=== PATIENT | female | born 1945 | race Caucasian/White ===

== ENCOUNTER 2016-04-17 10:03 | Emergency (ER) | payer MEDICARE, BC ==
[~2016-04-17] VITALS: Ht 160 cm; Wt 55.0 kg
[~2016-04-17 10:03] MED LIST: ALBU1AER INH; AYRGEL; CALCTAB32 PO; CETI5TAB2 PO; FIBEPOW PO; FLOVENT110 MCG/A INH; MELA3CAP2 PO; RALO1TAB13 PO; RHINSUS; SIMV20TA PO; URSO300C3 PO; ZITH250T PO
[2016-04-17 10:06] VITALS: BP 144/68; PULSE 76; RESP 16; TEMP 97.6; O2SAT 96
[2016-04-17 10:35] VITALS: BP 135/61; PULSE 71; RESP 18; O2SAT 100
[2016-04-17] MEDS ORDERED: URSO300C2 PO (10:40)
[2016-04-17] MEDS ORDERED: OMEP20CA2 PO (10:40)
[2016-04-17] MEDS ORDERED: FAMO1TAB37 PO (10:40)
[2016-04-17] MEDS ORDERED: MIRA33504 PO (10:40)
--- NOTE | 2016-04-17 10:41 | PD ---
HPI Chief Complaint: Skin Problem Time Seen by Provider: 10:30 Travel History International Travel<30 days: No Contact w/Intl Traveler<30days: No Traveled to known affect area: No History of Present Illness HPI Patient is a 70-year-old female who presents to ER with complaints of swelling to her neck. Patient reports that she noticed the swelling on and reports that it "just feels like it's getting bigger." Patient denies pain the her neck. patient denies fever/chills. Denies chest pain/sob. Patient with no other complaints. Denies injury/trauma to head/neck. PFSH Past Medical History ?: Not Past Surgical History Hysterectomy: Yes Other Surgery: Yes Social History Alcohol Use: No Tobacco Use: No Substance Use: No Allergies-Medications (Allergen,Severity, Reaction): Coded Allergies: Avelox (Verified Allergy, Severe, SWELLING, 04/13/12) Levaquin (Verified Allergy, Severe, ANAPHALAXIS, 04/13/12) Amoxicillin (Verified Allergy, Intermediate, RASH, 04/13/12) Augmentin (Verified Allergy, Intermediate, RASH, 04/13/12) Keflex (Verified Allergy, Intermediate, RASH, 04/13/12) Macrobid (Verified Allergy, Intermediate, RASH, 04/13/12) Sulfa (Verified Allergy, Intermediate, RASH, 04/13/12) Advair (Verified Allergy, Unknown, UNKNOWN REACTION, 04/13/12) Claritin (Verified Allergy, Unknown, UNKNOWN REACTION, 04/13/12) Percocet (Verified Allergy, Unknown, UNKNOWN REACTION, 04/13/12) Singulair (Verified Allergy, Unknown, UNKNOWN REACTION, 04/13/12) Advil (Verified Adverse Reaction, Severe, DIFFICULTY BREATHING, 04/13/12) Reported Meds & Prescriptions Reported Meds & Active Scripts Active Reported Rhinocort Aqua Nasal [place] (Budesonide Nasal [place]) 32 Mcg/Act Susp 2 [place] EACH NARE DAILY 120 sprays/bottle. Proair Hfa 8.5 GM Inh (Albuterol Sulfate) 90 Mcg/Act Aer 2 Puff INH Q4-6H PRN 108 mcg/actuation Calcium Citrate +D (Calcium Citrate-Vitamin D) 315-250 Mg-Unit Tab 1 Tab PO TID Zyrtec Allergy (Cetirizine HCl) 10 Mg Tab 10 Mg PO DAILY Flovent Hfa 12 GM Inh (Fluticasone Propionate) 110 Mcg/Act Inh 2 Puff INH BID Melatonin Cr (Melatonin) 3 Mg Tab 6 Mg PO HS Evista (Raloxifene HCl) 60 Mg Tab 60 Mg PO AC DINNER Simvastatin 20 Mg Tab 20 Mg PO HS Ursodiol 300 Mg Cap 300 Mg PO 3 TIMES A DAY W/MEAL Omeprazole 20 Mg Cap 20 Mg PO DAILY Pepcid (Famotidine) 20 Mg Tab 20 Mg PO HS Miralax Powder (Polyethylene Glycol 3350 Powder) 17 Gm Powd 17 Gm PO DAILY PRN Mix and dissolve one measuring cap-ful (17 grams) in water or juice. Review of Systems General / Constitutional: No: Fever Eyes: No: Visual changes HENT: No: Headaches Cardiovascular: No: Chest Pain or Discomfort Respiratory: No: Shortness of Breath Gastrointestinal: No: Abdominal Pain Genitourinary: No: Dysuria Musculoskeletal: No: Pain Skin: No Rash Neurologic: No: Weakness Psychiatric: No: Depression Endocrine: No: Polydipsia Hematologic/Lymphatic: No: Easy Bruising Physical Exam Narrative GENERAL: No acute distress, nontoxic SKIN: Warm and dry. HEAD: Atraumatic. Normocephalic. EYES: Pupils equal and round. No scleral icterus. No injection or drainage. ENT: No nasal bleeding or discharge. Mucous membranes pink and moist. NECK: Trachea midline. No JVD. Patient with mild circumfrential swelling above bilateral clavicles - no cellulitis or signs of infection, no obvious abscess CARDIOVASCULAR: Regular rate and rhythm. No murmur appreciated. RESPIRATORY: No accessory muscle use. Clear to auscultation. Breath sounds equal bilaterally. GASTROINTESTINAL: Abdomen soft, non-tender, nondistended. Hepatic and splenic margins not palpable. MUSCULOSKELETAL: No obvious deformities. No clubbing. No cyanosis. No edema. NEUROLOGICAL: Awake and alert. No obvious cranial nerve deficits. Motor grossly within normal limits. Normal speech. PSYCHIATRIC: Appropriate mood and affect; insight and judgment normal. Data Data Last Documented VS Vital Signs Date Time Temp Pulse Resp B/P Pulse Ox O2 Delivery O2 Flow Rate FiO2 04/17/16 10:35 71 18 135/61 100 Room Air 04/17/16 10:06 97.6 Orders Basic Metabolic Panel (Bmp) (04/17/16 10:31) Complete Blood Count With Diff (04/17/16 10:31) Iv Access Insert/Monitor (04/17/16 10:31) Ct Soft Tiss Neck W Iv Cont (04/17/16 ) Sodium Chlor 0.9% 1000 Ml Inj (Ns 1000 M (04/17/16 10:45) Iohexol 350 Inj (Omnipaque 350 Inj) (04/17/16 12:09) Labs Laboratory Tests Test 04/17/16 10:41 White Blood Count 6.4 TH/MM3 Red Blood Count 4.14 MIL/MM3 Hemoglobin 12.8 GM/DL Hematocrit 38.7 % Mean Corpuscular Volume 93.5 FL Mean Corpuscular Hemoglobin 30.8 PG Mean Corpuscular Hemoglobin 33.0 % Concent Red Cell Distribution Width 14.2 % Platelet Count 195 TH/MM3 Mean Platelet Volume 10.0 FL Neutrophils (%) (Auto) 52.5 % Lymphocytes (%) (Auto) 31.8 % Monocytes (%) (Auto) 10.3 % Eosinophils (%) (Auto) 4.9 % Basophils (%) (Auto) 0.5 % Neutrophils # (Auto) 3.4 TH/MM3 Lymphocytes # (Auto) 2.0 TH/MM3 Monocytes # (Auto) 0.7 TH/MM3 Eosinophils # (Auto) 0.3 TH/MM3 Basophils # (Auto) 0.0 TH/MM3 CBC Comment DIFF FINAL Differential Comment Sodium Level 142 MEQ/L Potassium Level 3.7 MEQ/L Chloride Level 106 MEQ/L Carbon Dioxide Level 29.9 MEQ/L Anion Gap 6 MEQ/L Blood Urea Nitrogen 16 MG/DL Creatinine 0.55 MG/DL Estimat Glomerular Filtration 110 ML/MIN Rate Random Glucose 72 MG/DL Calcium Level 8.7 MG/DL [facility] Medical Decision Making Medical Screen Exam Complete: Yes Emergency Medical Condition: Yes Interpretation(s) Vital Signs Date Time Temp Pulse Resp B/P Pulse Ox O2 Delivery O2 Flow Rate FiO2 04/17/16 10:06 97.6 76 16 144/68 96 Room Air Differential Diagnosis lymphoma, abscess, viral syndrome - swollen lymph nodes Narrative Course Patient is a 70-year-old female who presents to emergency room for evaluation of swelling above her clavicles bilaterally since . Patient reports that she feels balls of swelling above her clavicles and has never had this before. Patient with no complaints at this time, no fever/chills, no recent illness. Patients VSS. Patient is in no acute distress. CBC, BMP, soft tissue of neck ordered for further evaluation of patient's symptoms. cbc: wbc: 6.4 Hemoglobin 12.8 Hematocrit 38.7 Platelets 195 BMP Sodium 142 Chloride 106 Potassium 3.7 [address] of neck: unremarkable ct soft tissue of the neck ct study and report given to pt - pt will follow up with pcp and return to ER as needed pt instructed to follow up with pcp and return to ER as needed Diagnosis Primary Impression: Lymphadenopathy Patient Instructions: General Instructions Additional Instructions: Please follow-up with primary care doctor as soon as possible Return to the emergency room as needed Return to the emergency room if symptoms progress or worsen Please bring your radiology report to doctor's office for follow-up on all studies Disposition: 01 DISCHARGE HOME Condition: Stable Leonor Miller DO Apr 17, 2016 10:41
[2016-04-17] MEDS ORDERED: SODIUM CHLOR 0.9% 1000 ML INJ 1,000 ML IV ONE (10:45)
[2016-04-17] MEDS ORDERED: SIMV20TA PO (10:47)
[2016-04-17] MEDS ORDERED: EVIS60TA PO (10:47)
[2016-04-17] MEDS ORDERED: ZYRT10TA PO (10:47)
[2016-04-17] MEDS ORDERED: MELA3TAB23 PO (10:47)
[2016-04-17] MEDS ORDERED: FLUTI110I INH (10:47)
[2016-04-17] MEDS ORDERED: ALBUAER3 INH (10:47)
[2016-04-17] MEDS ORDERED: CALCTAB75 PO (10:47)
[2016-04-17] MEDS ORDERED: RHINSUS EACH NARE (10:48)
[2016-04-17 10:54] LABS: AUTOMATED NEUTROPHIL # 3.4 TH/MM3 (1.8-7.7); BASOPHIL % 0.5 % (0.0-2.0); EOSINOPHIL # 0.3 TH/MM3 (0-0.4); EOSINOPHIL % 4.9 % (0.0-4.0); HEMATOCRIT 38.7 % (35.0-46.0); HEMO FLAGS DIFF FINAL; LYMPH % 31.8 % (9.0-44.0); MEAN CELL VOLUME 93.5 FL (80.0-100.0); MEAN CORPUSCULAR HEMOGLOBIN 30.8 PG (27.0-34.0); MONO % 10.3 % (0.0-8.0); NEUT % 52.5 % (16.0-70.0); PLATELET COUNT 195 TH/MM3 (150-450); RED BLOOD COUNT 4.14 MIL/MM3 (4.00-5.30); RED CELL DISTRIBUTION WIDTH 14.2 % (11.6-17.2); WHITE BLOOD COUNT 6.4 TH/MM3 (4.0-11.0)
[2016-04-17 11:17] LABS: BICARBONATE 29.9 MEQ/L (21.0-32.0); POTASSIUM 3.7 MEQ/L (3.5-5.1)
[2016-04-17] MEDS ORDERED: IOHEXOL 350 MG/ML 10 ML VIAL (for RAD DIAG) IV ONE (12:09)
--- NOTE | 2016-04-17 12:16 | RADRPT ---
EXAM DATE/TIME: 04/17/2016 11:39 [facility] COMPARISON: No previous studies available for comparison. INDICATIONS : Bilateral swelling above clavicle. IV CONTRAST: 60 cc Omnipaque 350 (iohexol) IV RADIATION DOSE: 19.9 CTDIvol (mGy) MEDICAL HISTORY : None SURGICAL HISTORY : Hysterectomy. ENCOUNTER: Initial ACUITY: 1 day PAIN SCALE: 5/10 LOCATION: cranial TECHNIQUE: Volumetric scanning of the neck was performed. Using automated exposure control and adjustment of th e mA and/or kV according to patient size, radiation dose was kept as low as reasonably achievable to obtain optimal diagnostic quality images. FINDINGS: NASOPHARYNX: The nasopharyngeal airway has a normal configuration. No mucosal thickening or mass is seen. There i s chronic sinus disease in the maxillary sinuses bilaterally with evidence of previous sinus surgery. OROPHARYNX: The intrinsic muscles of the tongue are symmetric. The tonsillar pillars are intact. The prevertebr al soft tissues are not thickened. LARYNX: The supraglottic, glottic, and infraglottic structures are intact. PARAPHARYNGEAL: The parapharyngeal space is intact. SALIVARY GLANDS: The parotid and submandibular glands are intact. LYMPH NODES: No enlarged or necrotic-appearing nodes. THYROID: Homogeneous enhancement without evidence of nodule. BONES: Mild degenerative changes. CONCLUSION: 1. Unremarkable CT soft tissue neck for patient's age. 2. 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 Mike Austin MD on April 17, 2016 at 12:12 Board Certified Radiologist. This report was verified electronically.
== END 2016-04-17 12:56 | disposition home or self-care (01) ==
LOC: NEPC 10:03
DX: R59.0 Localized enlarged lymph nodes (principal)
CPT/HCPCS: 70491; 80048; 85025; 99284; J7030; Q9967